=== PATIENT | male | born 1930 | race Caucasian/White ===

== ENCOUNTER 2017-09-24 05:10 | Inpatient (IN) | payer OTHER, BC ==
[~2017-09-24] VITALS: Ht 182.9 cm; Wt 72.8 kg
[~2017-09-24 05:10] MED LIST: ALEVE220 M2 PO; ASPIR 8181 M1 PO; ASPIR-LOW81 MG PO; AVODART0.5 MG PO; AZOPT 1% O200 DROP/1 BOTH EYES; CLOPIDOGREL75 MG PO; COMBIVENT RESPIM4 GM IH; COMBIVIR1 TABLET PO; CRESTOR10 MG PO; DAILY VITAMIN1 EAC8 PO; FIBER THERAPY PO; FUROSEMIDE20 MG PO; ISENTRESS400 MG PO; K-DUR10 MEQ PO; LATANOPROST2.5 ML LEFT EYE; LIDODERM 5% P1 PATCH TD; LISINOPRIL2.5 MG PO; LOPRESSOR25 MG PO; MAGNESIUM250 MG PO; METAMUCIL PACKE1 PKT PO; METOPROLOL TART25 MG PO; MOTRIN600 MG PO; NORCO 5/3251 TABLET PO; PRILOSEC10 MG PO; PRILOSEC40 MG PO; QUININE SULFAT324 MG PO; TRUSOPT5 ML LEFT EYE; VITAMIN B12-FO1 EACH PO; VITAMIN D32000 UNI1 PO; ZOVIRAX800 M1 PO
[2017-09-24 06:49] LABS: APPEARANCE CLEAR ((CLEAR)); BILIRUBIN NEGATIVE; BLOOD NEGATIVE; COLOR YELLOW ((YELLOW)); GLUCOSE (STRIP) NEGATIVE; KETONES NEGATIVE; LEUKOCYTES NEGATIVE; NITRITE NEGATIVE; PROTEIN (STRIP) NEGATIVE; SPECIFIC GRAVITY 1.011 (1.000-1.030); UCUL ADDED? NO; UROBILINOGEN 0.2 MG/DL (0.2-1.0)
[2017-09-24 07:03] LABS: HEMATOCRIT 43.8 % (38.0-50.0); HEMOGLOBIN 15.4 G/DL (12.5-16.6); MCH 37.2 PG (29.0-34.0); MCHC 35.2 G/DL (30.0-36.0); MCV 105.8 FL (86-99); PLATELET COUNT 134 K/uL (156-360); RBC DIS.WIDTH-CV 13.2 % (11.8-14.6); RBC DIS.WIDTH-SD 52.1 % (39-53); RED BLOOD COUNT 4.14 M/uL (4.00-5.50); WHITE BLOOD COUNT 6.9 K/uL (4.1-10.2)
[2017-09-24 07:26] LABS: ALBUMIN 4.4 G/DL (3.2-4.8); CHLORIDE 104 MEQ/L (99-109); POTASSIUM 4.1 MEQ/L (3.7-5.4); SODIUM 141 MEQ/L (136-147)
[2017-09-24 07:32] LABS: ALKALINE PHOSPHATASE 69 IU/L (3-129); ALT (GPT) 19 IU/L (3-49); AST (GOT) 32 IU/L (2-34); GFR ESTIMATE (CALCULATED) > 59 mL/min/ (58.99-99999); GLUCOSE 103 mg/dL (70-99); LIPASE 46 U/L (1.0-51.0); TOTAL PROTEIN 6.7 G/DL (6.4-8.3); UREA NITROGEN (BUN) 19 mg/dL (9-23)
[2017-09-24 07:37] LABS: TROP-I INTERPRETATION NEGATIVE; TROPONIN-I 0.02 ng/mL (0.0-0.30)
[2017-09-24] MEDS ORDERED: AZOPT 1% O200 DROP/1 LEFT EYE (10:02)
[2017-09-24] MEDS ORDERED: VITAMIN B COMP1 EACH PO (10:03)
[2017-09-24] MEDS ORDERED: MAGNESIUM400 M1 PO (10:04)
[2017-09-24] MEDS ORDERED: TIMOPTIC-0100 DROP/5 LEFT EYE (10:10)
[2017-09-24 10:49] VITALS: BP 144/71
[2017-09-24 20:07] VITALS: BP 120/61
[2017-09-25] VITALS: BP 142/75
[2017-09-25 04:00] VITALS: BP 118/69
[2017-09-25 08:04] VITALS: BP 144/72
[2017-09-25 11:57] VITALS: BP 131/70
[2017-09-25 19:58] VITALS: BP 118/65
[2017-09-26 04:00] VITALS: BP 126/74
[2017-09-26 06:29] LABS: BASOPHIL (%) 0.9 % (0-1); BASOPHIL COUNT 0.1 K/uL (0-0.1); EOSINOPHIL (%) 4.2 % (0-5); EOSINOPHIL COUNT 0.3 K/uL (0-0.3); HEMOGLOBIN 14.7 G/DL (12.5-16.6); IMMATURE GRANULOCYTE (%) 0.3 % (0.0-0.7); LYMPHOCYTE (%) 20.9 % (15-42); LYMPHOCYTE COUNT 1.6 K/uL (1.0-2.8); MCH 36.9 PG (29.0-34.0); MCV 105.5 FL (86-99); MONOCYTE (%) 15.8 % (3-12); MONOCYTE COUNT 1.2 K/uL (0-0.8); NEUTROPHIL (%) 57.9 % (45-76); NEUTROPHIL COUNT 4.3 K/uL (1.8-6.4); PLATELET COUNT 143 K/uL (156-360); RBC DIS.WIDTH-CV 13.2 % (11.8-14.6); RBC DIS.WIDTH-SD 51.3 % (39-53); RED BLOOD COUNT 3.98 M/uL (4.00-5.50); WHITE BLOOD COUNT 7.4 K/uL (4.1-10.2)
[2017-09-26 06:55] LABS: CHLORIDE 106 MEQ/L (99-109); CREATININE 0.9 MG/DL (0.6-1.3); GFR ESTIMATE (CALCULATED) > 59 mL/min/ (58.99-99999); GLUCOSE 91 mg/dL (70-99); MAGNESIUM 1.8 mg/dl (1.3-2.7); SODIUM 141 MEQ/L (136-147); UREA NITROGEN (BUN) 12 mg/dL (9-23)
[2017-09-26 08:03] VITALS: BP 138/82
[2017-09-26] MEDS ORDERED: ANTIVERT12.5 MG PO (11:15)
[2017-09-26 12:00] VITALS: BP 129/80
[2017-09-26 16:00] VITALS: BP 112/68
[2017-09-26 20:00] VITALS: BP 103/61
[2017-09-27 08:00] VITALS: BP 122/64
== END 2017-09-27 14:53 | DRG 83 ==
LOC: EME → EDBD 05:10 → EDOF 07:56 → 5SOUTH 07:56 → ENRESERV 07:56 → 5SOUTH 10:30 → ENPENDDIS 09-27 12:42 → 5SOUTH 09-27 14:53
PROVIDERS: Emergency Medicine; Physician Assistant
DX: S06.5X9A Traumatic subdural hemorrhage with loss of consciousness of unspecified duration, initial encounter (principal); I10 Essential (primary) hypertension; K21.9 Gastro-esophageal reflux disease without esophagitis; E78.5 Hyperlipidemia, unspecified; W18.30XA Fall on same level, unspecified, initial encounter; Y92.009 Unspecified place in unspecified non-institutional (private) residence as the place of occurrence of the external cause; Z96.651 Presence of right artificial knee joint; Z66 Do not resuscitate; Z85.828 Personal history of other malignant neoplasm of skin; Z87.891 Personal history of nicotine dependence; Z21 Asymptomatic human immunodeficiency virus [HIV] infection status; H53.2 Diplopia; R47.01 Aphasia; N40.1 Benign prostatic hyperplasia with lower urinary tract symptoms; R39.15 Urgency of urination; R42 Dizziness and giddiness; M19.90 Unspecified osteoarthritis, unspecified site; R29.6 Repeated falls
CPT/HCPCS: 70450; 70551; 71045; 80048; 80053; 81003; 83690; 83735; 84484; 85025; 85027; 93005; 93880; 97530 GO; 97530 GP; 99281; 99285